=== PATIENT | female | born 1995 | race Caucasian/White ===

== ENCOUNTER 2021-07-27 06:15 | Inpatient (IN) | payer BC ==
[2021-07-27 07:05] VITALS: BMI 38.2
[2021-07-27] MEDS ORDERED: DEXTROSE 5%-LACTATED RINGERS 1,000 ML IV SCH (08:00)
[2021-07-27] MEDS ORDERED: AMPICILLIN - 2 GM in SODIUM CHLORIDE 100 ML IVPB ONE (08:30)
[2021-07-27] MEDS ORDERED: AMPICILLIN SODIUM 2 GM VIAL ONE (08:39)
[2021-07-27] MEDS: AMPICILLIN - 1 GM in SODIUM CHLORIDE 100 ML IVPB SCH ×5 (09:23→20:30)
[2021-07-27 10:42] LABS: BASO % 0.2 % (0-2.0); EOS % 1.4 % (0-4.5); HEMATOCRIT 30.2 % (32.4-45.2); HEMOGLOBIN 9.9 GM/dL (10.7-15.3); MCH 28.6 pg (25.7-33.7); MCHC 32.8 g/dl (32.0-36.0); MEAN CELL VOLUME 87.4 fl (80-96); MEAN PLT VOLUME 10.6 fl (7.5-11.1); MONO % 10.7 % (3.8-10.2); NEUT % 63.7 % (42.8-82.8); PLATELET COUNT 203 10^3/uL (134-434); RBC 3.45 M/mm3 (3.60-5.2); RDW 12.8 % (11.6-15.6); WHITE BLOOD COUNT 8.7 K/mm3 (4.0-10.0)
[2021-07-27 10:55] LABS: ACTIVATED PTT 28.5 SECONDS (25.2-36.5); PROTHROMBIN TIME (PATIENT) 11.5 SEC (9.7-13.0)
[2021-07-27 11:07] LABS: CALCIUM 8.6 mg/dL (8.5-10.1)
[2021-07-27 11:08] LABS: BLOOD UREA NITROGEN 6.8 mg/dL (7-18)
[2021-07-27 11:11] LABS: CREATININE 0.4 mg/dL (0.55-1.3)
[2021-07-27] MEDS ORDERED: AMPICILLIN SODIUM 1 GM VIAL ONE ×3 (11:51→19:24)
[2021-07-27 12:01] LABS: HIV INTERPRETATION NEGATIVE (NEGATIVE)
[2021-07-27] MEDS ORDERED: OXYTOCIN 30 UNITS in 0.9% NS 30 UNIT/500 ML INFUS.BAG IVPB ONE (13:29)
[2021-07-27] MEDS ORDERED: OXYTOCIN 30 UNITS in 0.9% NS 30 UNIT/500 ML INFUS.BAG IVPB SCH (15:15)
[2021-07-27] MEDS: DEXTROSE 5%-LACTATED RINGERS 1,000 ML IV SCH (16:30)
[2021-07-27] MEDS ORDERED: FENTANYL/BUPIVACAINE/NS/PF - PCEA - 50 ML DISP.SYRIN EP ONE ×2 (18:19→22:11)
[2021-07-27] MEDS ORDERED: BUPIVACAINE HCL/PF 0.25% (2.5MG/ML) 10 ML VIAL ONE (18:38)
[2021-07-27] MEDS ORDERED: NALOXONE HCL 0.4 MG/ML VIAL IVPUSH PRN (19:14)
[2021-07-27] MEDS: FENTANYL/BUPIVACAINE/NS/PF - PCEA - 50 ML DISP.SYRIN EP SCH ×2 (19:15→22:19)
[2021-07-27] MEDS ORDERED: OXYTOCIN 20 UNITS in 0.9% NS 20 UNIT/1,000 ML INFUS.BAG IV ONE (23:53)
[2021-07-28] MEDS ORDERED: METHYLERGONOVINE MALEATE 0.2 MG/1 ML AMP IM PRN (01:22)
[2021-07-28] MEDS ORDERED: BENZOCAINE 28 GM HEMORRHOIDAL OINTMENT TP PRN (01:22)
[2021-07-28] MEDS ORDERED: BENZOCAINE 20% 57 GM BOTTLE TP PRN (01:22)
[2021-07-28] MEDS ORDERED: oxyCODONE HCL 5 MG TABLET PO PRN (01:22)
[2021-07-28] MEDS ORDERED: ACETAMINOPHEN 325 MG TABLET (FP) PO PRN (01:22)
[2021-07-28] MEDS ORDERED: BISACODYL 10 MG SUPP.RECT RC PRN (01:22)
[2021-07-28] MEDS ORDERED: WITCH HAZEL 50% (TUCKS) 40 PAD/JAR PAD TP PRN (01:22)
[2021-07-28] MEDS ORDERED: OXYTOCIN 20 UNITS in 0.9% NS 20 UNIT/1,000 ML INFUS.BAG IV SCH (01:30)
[2021-07-28] MEDS: AMPICILLIN - 1 GM in SODIUM CHLORIDE 100 ML IVPB SCH (01:34)
[2021-07-28] MEDS ORDERED: ACETAMINOPHEN 325 MG TABLET (FP) ONE (01:36)
[2021-07-28] MEDS ORDERED: oxyCODONE HCL 5 MG TABLET ONE (01:37)
[2021-07-28 08:14] LABS: BASO % 0.1 % (0-2.0); EOS % 0.1 % (0-4.5); HEMATOCRIT 25.4 % (32.4-45.2); HEMOGLOBIN 8.5 GM/dL (10.7-15.3); LYMPH % 10.8 % (8-40); MCH 28.7 pg (25.7-33.7); MCHC 33.3 g/dl (32.0-36.0); MEAN CELL VOLUME 86.2 fl (80-96); PLATELET COUNT 178 10^3/uL (134-434); RBC 2.95 M/mm3 (3.60-5.2); RDW 12.9 % (11.6-15.6); WHITE BLOOD COUNT 13.5 K/mm3 (4.0-10.0)
[2021-07-28] MEDS ORDERED: DIPHTH,PERTUSS(ACELL),TET 0.5 ML DISP.SYRIN IM ONE (10:00)
[2021-07-28] MEDS ORDERED: FLU VACC QS2021-22(6MOS UP)/PF 60 MCG/0.5 ML SYRINGE IM ONE (10:00)
[2021-07-28] MEDS: PRENATAL VITAMINS W/ FOLIC ACID TABLET (FP) PO SCH (10:11)
[2021-07-28] MEDS: IBUPROFEN 600 MG TABLET (FP) PO PRN ×3 (10:11→20:36)
[2021-07-29] MEDS: IBUPROFEN 600 MG TABLET (FP) PO PRN ×4 (05:16→23:42)
[2021-07-29] MEDS: PRENATAL VITAMINS W/ FOLIC ACID TABLET (FP) PO SCH (09:55)
[2021-07-29] MEDS: DEXTROSE 5%-LACTATED RINGERS 1,000 ML IV SCH (16:12)
[2021-07-29 21:44] VITALS: TEMP 98
[2021-07-29] MEDS ORDERED: SENNOSIDES/DOCUSATE COMBO (SENNA PLUS) TABLET (UD) PO PRN (22:00)
[2021-07-30] MEDS: IBUPROFEN 600 MG TABLET (FP) PO PRN (08:15)
[2021-07-30 08:34] VITALS: BP 96/53; PULSE 79
[2021-07-30] MEDS: PRENATAL VITAMINS W/ FOLIC ACID TABLET (FP) PO SCH (09:58)
== END 2021-07-30 12:35 | disposition home or self-care (01) | DRG 807 ==
LOC: JLDR 06:15 → J3W 07-28 02:50
PROVIDERS: ADMIT Obstetrics & Gynecology; ATTEND Obstetrics & Gynecology
PROC: 10E0XZZ Delivery of Products of Conception, External Approach (ICD-10-PCS; principal; 2021-07-28)
PROC: 0W8NXZZ Division of Female Perineum, External Approach (ICD-10-PCS; 2021-07-28)
DX: O80 Encounter for full-term uncomplicated delivery (principal); Z37.0 Single live birth; Z3A.40 40 weeks gestation of pregnancy
CPT/HCPCS: 36415; 59409; 80048; 85025; 85610; 85730; 86780; 86850; 86900; 86901; 87389; 90686; 90715; C9803-CS; G0008; U0003; U0005